=== PATIENT | female | born 1985 | race Caucasian/White ===

== ENCOUNTER 2016-12-23 01:05 | Inpatient (IN) | payer BC, MEDICAID ==
[~2016-12-23] VITALS: Ht 162.6 cm; Wt 99.3 kg
[~2016-12-23 01:05] MED LIST: CIPRO500 MG PO; LAC PO; ONDANSETRON4 M3 PO; OXYCODONE HCL A1 TAB PO; OXYCODONE/ACETAMINOP
[2016-12-23 02:07] LABS: CALCIUM 9.2 mg/dL (8.5-10.1); CARBON DIOXIDE 26.5 mmol/L (21-32); CHLORIDE SERUM 105 mmol/L (98-107); CREATININE SERUM 1.1 mg/dL (0.6-1.0); GFR1 > 60 mL/min; GLUCOSE SERUM 94 mg/dL (74-106); POTASSIUM SERUM 3.6 mmol/L (3.5-5.1); SODIUM SERUM 142 mmol/L (136-145)
[2016-12-23 02:11] LABS: ALBUMIN 3.6 g/dL (3.4-5.0); ALKALINE PHOSPHATASE 145 U/L (46-116); ALT/SGPT 116 U/L (14-59); AMYLASE 71 U/L (25-115); AST/SGOT 37 U/L (15-37); BILIRUBIN TOTAL 0.29 mg/dL (0.20-1.00); LIPASE 258 IU/L (73-393); TOTAL PROTEIN, SERUM 7.2 g/dL (6.4-8.2)
[2016-12-23 02:18] LABS: BASOPHIL % 0.2 % (0-2); RED CELL DISTRIBUTION WIDTH 13.8 % (11.5-14.5)
[2016-12-23 02:20] LABS: PLATELET COUNT 79 x10^3mcL (130-400)
[2016-12-23 02:24] LABS: microscopic required? YES; urine erythrocyte 3+ (NEGATIVE)
[2016-12-23 05:12] LABS: MAGNESIUM 1.8 mg/dL (1.8-2.4); PHOSPHOROUS 2.9 mg/dL (2.5-4.9)
[2016-12-23 05:21] LABS: T3 TOTAL 1.32 ng/mL
[2016-12-23 05:34] LABS: FREE T4 1.1 ng/dL (0.76-1.46); FREE THYROXINE INDEX 3.2 ug/dL (1.4-4.5); T4(THYROXINE) 9.3 ug/dL (4.7-13.3)
[2016-12-23 05:52] VITALS: BP 114/68
[2016-12-23 09:23] VITALS: BP 103/63
[2016-12-23 13:48] VITALS: BP 93/49
[2016-12-23 14:44] LABS: AMPHETAMINE QUAL UR NONE DETECTED (NEG <=1000)
[2016-12-23 17:07] VITALS: BP 99/38
[2016-12-23 21:07] VITALS: BP 111/60
[2016-12-24 05:47] VITALS: BP 111/79
[2016-12-24 09:53] VITALS: BP 109/68
[2016-12-24 13:55] LABS: BASOPHIL % 0.5 % (0-2); RED CELL DISTRIBUTION WIDTH 14.2 % (11.5-14.5)
[2016-12-24 13:57] LABS: PLATELET COUNT 79 x10^3mcL (130-400)
[2016-12-24 14:05] LABS: CALCIUM 8.2 mg/dL (8.5-10.1); CARBON DIOXIDE 21.8 mmol/L (21-32); CREATININE SERUM 1.5 mg/dL (0.6-1.0); MAGNESIUM 1.9 mg/dL (1.8-2.4); PHOSPHOROUS 3.3 mg/dL (2.5-4.9); POTASSIUM SERUM 4.2 mmol/L (3.5-5.1)
[2016-12-24 14:19] VITALS: BP 116/73
[2016-12-24 17:58] VITALS: BP 104/62
[2016-12-25 06:11] VITALS: BP 104/63
[2016-12-25 10:07] VITALS: BP 114/68
[2016-12-25] MEDS ORDERED: TAMSULOSIN HYD0.4 M1 PO (10:52)
[2016-12-25] MEDS ORDERED: COLACE100 MG PO (10:53)
[2016-12-25] MEDS ORDERED: PERCOCET1 TA5 PO (10:53)
[2016-12-25] MEDS ORDERED: PYRIDIUM100 MG PO (10:55)
[2016-12-25] MEDS ORDERED: LEVAQUIN750 MG PO (11:02)
[2016-12-25] MEDS ORDERED: LAC PO (11:02)
[2016-12-25 12:09] VITALS: BP 114/68
== END 2016-12-25 14:55 | disposition home or self-care (01) | DRG 694 ==
LOC: ED 01:05 → DU 04:30 → MU 12-25 10:49
PROVIDERS: Emergency Medicine; ADMIT Family Medicine
DX: N13.2 Hydronephrosis with renal and ureteral calculous obstruction (principal); N17.0 Acute kidney failure with tubular necrosis; E78.2 Mixed hyperlipidemia; D69.6 Thrombocytopenia, unspecified; E02 Subclinical iodine-deficiency hypothyroidism; Z87.442 Personal history of urinary calculi; Z68.37 Body mass index [BMI] 37.0-37.9, adult
CPT/HCPCS: 83880; 84439; C1769; C2625; J1170; J1885; J1956; J2250; J2270; J2405; J3010; J7030; Q0162; Q9958; Q9967